=== PATIENT | male | born 1980 | race Hispanic/Latino ===

== ENCOUNTER 2022-09-29 13:32 | Emergency (ER) | payer OTHER ==
[~2022-09-29] VITALS: Ht 165.1 cm; Wt 77.1 kg
[2022-09-29] MEDS ORDERED: CYCLOBENZAPRINE HCL 10 MG TABLET PO STA (14:24)
[2022-09-29] MEDS ORDERED: KETOROLAC 30MG VIAL (30MG/ML) IM STA (14:24)
[2022-09-29 15:09] LABS: HEMATOCRIT 40.3 % (42-54); MEAN CORPUSCULAR HEMOGLOBIN 25.8 pg (27.0-33.0); MEAN CORPUSCULAR HGB CONC 32.5 g/dL (32.0-36.0); MEAN CORPUSCULAR VOLUME 79.3 fL (79-99); RED BLOOD CELL COUNT(AUTO) 5.08 MIL/uL (4.50-6.20); RED CELL DISTRIBUTION WIDTH 16.9 % (11.0-15.5); WHITE BLOOD COUNT (AUTO) 6.7 K/uL (4.8-10.8)
[2022-09-29 15:17] LABS: CREATININE 2.1 mg/dL (0.5-1.5)
[2022-09-29 15:25] LABS: ALBUMIN 3.9 g/dL (3.5-5.0); TOTAL PROTEIN, SERUM 7.6 g/dL (6.0-8.3)
[2022-09-29] MEDS ORDERED: 0.9%NACL 1000ML 1,000 ML IV ONE (16:00)
[2022-09-29] MEDS ORDERED: DICL20GE TP (16:04)
[2022-09-29 16:28] VITALS: BP 123/78
== END 2022-09-29 16:29 | disposition home or self-care (01) ==
LOC: EDH 13:32
DX: S13.9XXA Sprain of joints and ligaments of unspecified parts of neck, initial encounter (principal); G44.209 Tension-type headache, unspecified, not intractable; E86.0 Dehydration; K76.0 Fatty (change of) liver, not elsewhere classified; I10 Essential (primary) hypertension; X58.XXXA Exposure to other specified factors, initial encounter; Y93.89 Activity, other specified; Y92.89 Other specified places as the place of occurrence of the external cause; Y99.8 Other external cause status
CPT/HCPCS: 99285; 70450; 96360; 84484; 80053; 85027; 36415; 72125; 93005; 96372; J7030; J1885